=== PATIENT | female | born 1940 | race American Indian/Alaskan Native ===

== ENCOUNTER 2018-02-16 14:16 | Outpatient (CLI) | payer MEDICARE ==
[2018-02-16 17:49] LABS: Free T4 (Free Thyroxine) 1.43 ng/dL (0.76-1.46)
== END 2018-02-16 14:17 | disposition home or self-care (01) ==
LOC: LAB 14:16
PROVIDERS: ATTEND Specialist
DX: R69 Illness, unspecified (principal); E78.00 Pure hypercholesterolemia, unspecified; I10 Essential (primary) hypertension; K21.9 Gastro-esophageal reflux disease without esophagitis; M19.90 Unspecified osteoarthritis, unspecified site; E03.9 Hypothyroidism, unspecified; Z90.710 Acquired absence of both cervix and uterus
CPT/HCPCS: 36415; 83519; 84439; 84443